=== PATIENT | female | born 1985 | race Caucasian/White ===

== ENCOUNTER → 2024-07-28 14:15 | Outpatient (REF) | payer BC, SELFPAY | LOC: EMG 14:15 | PROVIDERS: ATTENDING PHYSICIAN Family Medicine | DX: R20.0 Anesthesia of skin (principal) | CPT/HCPCS: 95886; 95911 ==

== ENCOUNTER → 2024-10-06 11:06 | Outpatient (REF) | payer BC, SELFPAY | LOC: WDC 11:06 | PROVIDERS: ATTENDING PHYSICIAN Student in an Organized Health Care Education/Training Program; FAMILY PHYSICIAN Family Medicine | DX: Z12.31 Encounter for screening mammogram for malignant neoplasm of breast (principal) | CPT/HCPCS: 77063; 77067 ==

== ENCOUNTER 2024-10-15 18:46 | Emergency (ER) | payer BC, SELFPAY ==
--- NOTE | 2024-10-15 21:05 | ED.GENMED ---
History of Present Illness
General
Chief Complaint: Musculo-Skeletal Complaint
Time Seen by Provider: 10/15/24 21:04
History of Present Illness
History of Present Illness:
TIME OF INITIAL ENCOUNTER: 9:05 PM
HPI: Patient fell down steps and complains of pain at the left ankle. She was carrying a mattress into the basement by herself. She denies any other injury. She had no head trauma.
EXAM:
GENERAL: Well appearing in no distress
CERVICAL SPINE: No midline c-spine tenderness with excellent AROM
HEAD: No evidence of craniofacial trauma
CHEST: No chest wall tenderness, normal heart sounds
LUNGS: Equal lung sounds, no respiratory distress
ABDOMEN: No abdominal tenderness, no peritoneal signs
EXTREMITIES: Normal active range of motion, no tenderness other than minimal medial tenderness of the left hindfoot, Achilles intact, no significant swelling
NEURO: Excellent strength all extremities, appropriate mental status, normal speech/language
NUMBER AND COMPLEXITY OF PROBLEMS ADDRESSED AT THE ENCOUNTER
� Chronic conditions affecting care: Anxiety
� Acute Exacerbation and/or Progression of Chronic Illness: This is an acute problem
� Differential Diagnosis includes: Foot/ankle sprain/fracture, no evidence of Achilles injury on exam
AMOUNT AND/OR COMPLEXITY OF DATA TO BE REVIEWED AND ANALYZED
� I performed an independent evaluation of and my interpretation is:
EKG:
CT:
X-rays: X-ray shows no fracture
Laboratory Studies:
Other:
� Review of other/old records: No significant old records other than delivery
� Clinical information was obtained by an independent historian: None needed
� Prescriptions/Medications Considered but not given:
� Further testing considered but not performed:
RISK OF COMPLICATIONS AND/OR MORBIDITY OR MORTALITY OF PATIENT MANAGEMENT
� Social determinants of health affecting care: Lives at home
� Discussion with other providers:
� Escalation of care including admission/observation vs risk of discharge considered: Exam and imaging consistent with foot/ankle sprain. Achilles intact. Gave boot comfort. She will continue Motrin at home.
ANY OTHER UPDATES:
Past History
Past History
ED Past Medical History: Psychiatric (anxiety) and Other (Ectopic )
ED Past Surgical History: None
Social History
Tobacco: Non-smoker
Drug: None
Personal:
Living: with family
Employment: Employed
Phy Exam
Physical Exam
Physical Exam:
See HPI
Course
Orders/Labs/Results
Orders:
Orders
10/15/24 18:53
Ankle, left 3 view CR [CR Ankle - Left Min 3 Views ] Urgent
Comment:
Reason For Exam: pain
10/15/24 21:11
boot [Ortho Boot Left- Treatment] ONCE
Short or tall?: Short
Vital Signs
Initial and Last Documented VS:
Initial Vital Signs
Temp Pulse Resp Pulse Ox
37.6 C 84 18 99
10/15/24 18:51 10/15/24 18:51 10/15/24 18:51 10/15/24 18:51
Last Documented Vital Signs
Temp Pulse Resp Pulse Ox
37.6 C 84 18 99
10/15/24 18:51 10/15/24 18:51 10/15/24 18:51 10/15/24 18:51
*Critical Care Note
Total Time (30-74mins, 75-104mins- exclusive of procedures): Not Applicable
ED Attending Note
-
Portions of this chart may have been created with voice recognition software.� Occasional wrong word or��sound alike� substitutions may have occurred due to the inherent limitations of voice recognition software.
Discharge Plan
Departure
Patient Disposition: Home (Routine Discharge)
Date of Disposition: 10/15/24
Time of Disposition: 21:11
Patient with high blood pressure during this ER visit?: Yes
Discharge Problem:
Ankle sprain
Instructions: Ankle sprain, Foot sprain
Prescriptions:
No Action
vit,[id number] [Prenatabs Rx] 1 EACH tablet
1 tab PO HS
acetaminophen 325 MG tablet
650 mg PO Q4HPRN PRN (Reason: mild pain) 0RF
sennosides-docusate sodium 1 TABLET tablet
1 tab PO DAILYPRN PRN (Reason: constipation) 0RF
ibuprofen 600 MG tablet
600 mg PO Q4HPRN PRN (Reason: moderate pain/cramps) Qty: 20 0RF
Referrals:
Adan Doty MD [Active] - Follow up in 5-7 days
Activity Restrictions/Additional Instructions:
Your symptoms appear to be more consistent with a sprain of the foot/ankle. There is no sign of fracture based on the x-ray. I recommend 3 [id number] ibuprofen (Motrin) every 8 hours with food for a few days. Return here if worse. If
symptoms persist, consider following up with an orthopedist such as Dr. Doty.
Interventions
Interventions:
*Risk Screen - Suicide Last Done: 10/15/24 18:51
*General Assessment Last Done: 10/15/24 18:51
*Neglect/Abuse Screening Last Done: 10/15/24 18:51
*ED COVID-19 Vaccine History Last Done: 10/15/24 18:51
Discharge Date and Time
Print Language: AMERICAN
[2024-10-15 21:17] VITALS: BP 130/74
[2024-10-15 21:57] VITALS: BP 131/78
== END 2024-10-15 22:03 | disposition home or self-care (01) ==
LOC: EMR 18:46
PROVIDERS: EMERGENCY PHYSICIAN Emergency Medicine; FAMILY PHYSICIAN Family Medicine
DX: S93.402A Sprain of unspecified ligament of left ankle, initial encounter (principal); W10.9XXA Fall (on) (from) unspecified stairs and steps, initial encounter
CPT/HCPCS: 99283; 73610